=== PATIENT | male | born 1980 | race Caucasian/White ===

== ENCOUNTER 2020-07-16 12:45 | Emergency (ER) | payer BC ==
[2020-07-16 12:52] VITALS: RESP 18
--- NOTE | 2020-07-16 13:23 | ED ---
General Adult HPI - General Chief complaint: Urogenital Stated complaint: Groin pain Source: patient, RN notes reviewed Mode of arrival: ambulatory Limitations: no limitations - History of Present Illness Initial comments: 40-year-old male presents to the emergency room for a chief complaint of right- sided testicular pain. Patient reports that this started about 4 hours prior to arrival. They did steadily worsening pain and about ago patient took 800 mg Motrin which did help. Patient states it does hurt to press on the area. Patient denies fevers. Denies dysuria. Patient states he is without any new sexual partners. No concern for STDs. Patient has no other complaints at this time including shortness of breath, chest pain, abdominal pain, nausea or vomiting, headache, or visual changes. - Related Data Previous Rx's Medication Instructions Recorded Ibuprofen [Motrin] 600 mg PO Q6HR PRN #20 tab 12/17/15 Orphenadrine [Norflex] 100 mg PO Q12H #10 tablet.er 12/17/15 Allergies Allergy/AdvReac Type Severity Reaction Status Date / Time No Known Allergies Allergy Verified 12/17/15 20:48 Review of Systems ROS Statement: Those systems with pertinent positive or pertinent negative responses have been documented in the HPI. ROS Other: All systems not noted in ROS Statement are negative. Past Medical History Past Medical History: GERD/Reflux History of Any Multi-Drug Resistant Organisms: None Reported Past Surgical History: Orthopedic Surgery Past Psychological History: No Psychological Hx Reported Smoking Status: Never smoker Past Alcohol Use History: None Reported Past Drug Use History: None Reported General Exam Limitations: no limitations General appearance: alert, in no apparent distress Head exam: Present: atraumatic, normocephalic, normal inspection Eye exam: Present: normal appearance, PERRL, EOMI. Absent: scleral icterus, conjunctival injection ENT exam: Present: normal exam, mucous membranes moist Neck exam: Present: normal inspection, full ROM. Absent: tenderness Respiratory exam: Present: normal lung sounds bilaterally. Absent: respiratory distress, wheezes Cardiovascular Exam: Present: regular rate, normal rhythm, normal heart sounds GI/Abdominal exam: Present: soft, normal bowel sounds. Absent: distended, tenderness exam: Present: testicular tenderness (posterior right testicular tenderness near epididymis), other (Faith meza present for exam as retoucher). Absent: urethral discharge, scrotal swelling, vertical testicular lie, circumcision Course Vital Signs 07/16/20 12:50 Temperature 98.6 F Pulse Rate 98 Respiratory 18 Rate Blood Pressure 138/91 O2 Sat by Pulse 97 Oximetry Medical Decision Making - Medical Decision Making Vitals are stable. Patient is well appearing. No acute distress. Patient did not want pain medications in the ER. Physical exam reveals a mildly tender right posterior testicle. No edema. Urinalysis is negative. Ultrasound was obtained which shows no distinct abnormality. There is good blood flow, and no evidence of torsion. At this time recommend patient monitor symptoms and follow-up with urology. If symptoms are worsening he should return to the emergency room. I discussed this case with attending Dr. Woo who agrees with this assessment and treatment plan. - Lab Data Lab Results 07/16/20 Range/Units 13:07 Urine Color Yellow Urine Appearance Clear (Clear) Urine pH 5.5 (5.0-8.0) Ur Specific [place] 1.029 (1.001-1.035) Urine Protein 1+ H (Negative) Urine Glucose (UA) Negative (Negative) Urine Ketones Negative (Negative) Urine Blood Trace H (Negative) Urine Nitrite Negative (Negative) Urine Bilirubin Negative (Negative) Urine Urobilinogen <2.0 (<2.0) mg/dL Ur Leukocyte Esterase Negative (Negative) Urine RBC 1 (0-5) /hpf Urine WBC 1 (0-5) /hpf Hyaline Casts 1 (0-2) /lpf Urine Mucus Many H (None) /hpf Disposition Clinical Impression: Testicular pain, right Disposition: HOME SELF-CARE Condition: Good Instructions (If sedation given, give patient instructions): Testicle Pain (ED) Additional Instructions: Please take Motrin and Tylenol for pain. Please follow-up with urology. Call today for their earliest appointment. If you're having any significant worsening symptoms you should return to the emergency room for further evaluation. Is patient prescribed a controlled substance at d/c from ED?: No Referrals: Uche Morgan DO [Primary Care Provider] - 1-2 days Denver Barbosa MD [STAFF PHYSICIAN] - 1-2 days Time of Disposition: 13:56
[2020-07-16 13:24] LABS: Appearance,Urine Clear (Clear); Bilirubin,Urine Negative (Negative); Blood,Urine Trace (Negative); Color,Urine Yellow; Glucose,Urine (UA) Negative (Negative); Hyaline Casts,Urine 1 /lpf (0-2); Ketones,Urine Negative (Negative); Leukocyte Esterase,Urine Negative (Negative); Mucus,Urine Many /hpf; Nitrite,Urine Negative (Negative); PH, Urine 5.5 (5.0-8.0); Protein,Urine 1+ (Negative); RBC,Urine 1 /hpf (0-5); Specific Gravity,Urine 1.029 (1.001-1.035); Urobilinogen,Urine <2.0 mg/dL (<2.0); WBC,Urine 1 /hpf (0-5)
--- NOTE | 2020-07-16 13:42 | US ---
EXAMINATION TYPE: US scrotum with doppler. Grayscale and color Doppler Duplex imaging performed of t he scrotum. DATE OF EXAM: 07/16/2020 COMPARISON: NONE CLINICAL HISTORY: R testicle pain. x 5 hours EXAM MEASUREMENTS: TESTICLES: Right Testicle: 5.2 x 3.0 x 2.6 cm Left Testicle: 5.0 x 3.1 x 2.4 cm EPIDIDYMIS HEAD: Right Epididymis: 1.1 x 1.0 x 0.9 cm Left Epididymis: 0.9 x 0.8 x 0.7 cm Doppler performed to assess for testicular vascularity; good bilateral color flow and waveforms are s een. There is no evidence of testicular torsion. Presence of hydroceles: No Presence of varicoceles: No IMPRESSION: No distinct abnormality seen.
[2020-07-16 14:29] VITALS: BP 148/93; PULSE 88; TEMP 98
[2020-07-17 13:03] LABS: C. trachomatis,PCR Negative (Neg,Equiv); Chlamydia trachomatis Source Urine; N. gonorrhoeae,PCR Negative (Neg,Equiv); Neisseria Source Urine
== END 2020-07-16 14:20 | disposition home or self-care (01) ==
LOC: EC 12:45
DX: N50.811 Right testicular pain (principal)
CPT/HCPCS: 76870; 81001; 87086; 87491; 87591; 93975; 99284

== ENCOUNTER → 2020-08-18 | Outpatient (CLI) | payer BC ==
--- NOTE | 2020-08-18 15:22 | US ---
EXAMINATION TYPE: US kidneys/renal and bladder DATE OF EXAM: 08/18/2020 COMPARISON: NONE CLINICAL HISTORY: 40-year-old male R10.9 Right flank pain. TECHNIQUE: Multiple sonographic images of the kidneys and bladder are obtained. FINDINGS: EXAM MEASUREMENTS: Right Kidney: 11.5 X 6.5 X 5.5 cm Left Kidney: 11.9 X 5.6 X 5.7 cm Right Kidney: No hydronephrosis or masses seen Left Kidney: No hydronephrosis or masses seen Bladder: Partially distended bladder shows no gross remodeling. Bilateral Jets seen: No Incidental echogenic appearance to the liver. IMPRESSION: 1. No hydronephrosis. 2. Incidentally, there appears to be at least moderate hepatic steatosis. Clinically correlate.
== END | disposition home or self-care (01) ==
LOC: RADUSWWP 12:18
PROVIDERS: ATTEND Urology
DX: R10.9 Unspecified abdominal pain (principal)
CPT/HCPCS: 76770